=== PATIENT | female | born 1970 | race Caucasian/White ===

== ENCOUNTER 2024-11-27 05:46 | Day surgery (SDC) | payer BC ==
[2024-11-24 12:43] VITALS: BMI 21.9
[2024-11-27] MEDS ORDERED: PROPOFOL 20 ML ONE ×2 (06:41→07:00)
[2024-11-27] MEDS ORDERED: fentaNYL PF 100 MCG/2 ML SYRINGE ONE (06:59)
[2024-11-27] MEDS ORDERED: Lidocaine 1% PF 5 ML VIAL ONE (07:00)
[2024-11-27] MEDS ORDERED: Ondansetron PF 4 MG/2 ML Vial ONE (07:59)
== END 2024-11-27 11:30 | disposition home or self-care (01) ==
LOC: SDC 05:46
PROVIDERS: ATTEND Orthopaedic Surgery
PROC: 0SBD4ZZ Excision of Left Knee Joint, Percutaneous Endoscopic Approach (ICD-10-PCS; principal; 2024-11-27)
PROC: 3E0T3BZ Introduction of Anesthetic Agent into Peripheral Nerves and Plexi, Percutaneous Approach (ICD-10-PCS; principal; 2024-11-27)
DX: S83.272A Complex tear of lateral meniscus, current injury, left knee, initial encounter (principal); M25.561 Pain in right knee; Z98.51 Tubal ligation status; Z90.49 Acquired absence of other specified parts of digestive tract; Z88.2 Allergy status to sulfonamides; Z88.0 Allergy status to penicillin; X58.XXXA Exposure to other specified factors, initial encounter
CPT/HCPCS: J0166; J0665; J1100; J2250; J2405; J2704; J3490